=== PATIENT | female | born 1955 | race Caucasian/White ===

== ENCOUNTER 2016-05-21 09:41 | Day surgery (SDC) | payer MEDICARE, OTHER ==
--- NOTE | ~2016-05-21 | EGD ---
EGD REPORT [facility] [address] [place]. [id number] NAME: FOUZIA ABDALLA : 55 STATUS : REG [facility]#: [id number] AGE: 60 ADM/REG DATE : 05/21/16 MR#: [id number] REPORT SERV DATE: 05/21/16 DICTATED BY: CARSON RODGERS DATE: 05/21/16 REPORT STATUS : Draft [facility]ANS[facility]IBED BY: [facility] DATE: 05/21/16 Endoscopy Center Patient Name: Fouzia Abdalla Date of : 1955 Attending MD: CARSON RODGERS, Procedure Date No Time: 05/21/2016 Procedure: Upper EUS Indications: Suspected solid pancreatic neoplasm Referring MD: PARAMJIT CASTILLO Medicines: Monitored Anesthesia Care, General Anesthesia (patient intubated after food noted in stomach) Complications: No immediate complications. Estimated blood loss: None. Procedure: Pre-Anesthesia Assessment: - ASA Grade Assessment: III - A patient with severe systemic disease. After obtaining informed consent, the endoscope was passed under direct vision. Throughout the procedure, the patient's blood pressure, pulse, and oxygen saturations were monitored continuously. The Endoscope was introduced through the mouth, and advanced to the second part of duodenum. The GIF [id number] was introduced through the mouth, and advanced to the second part of duodenum. Findings: Endoscopic Finding : The examined esophagus was endoscopically normal. A large amount of food (residue) was found in the gastric body and in the gastric antrum. The examined duodenum was endoscopically normal. Endosonographic Finding : An irregular mass was identified in the pancreatic tail. The mass was hypoechoic. The mass measured 31 mm by 28 mm in maximal cross-sectional diameter. The endosonographic borders were well-defined. An intact interface was seen between the mass and the portal vein, superior mesenteric vein, splenoportal confluence, celiac trunk and superior mesenteric artery suggesting a lack of invasion. Fine needle aspiration was performed. Color Doppler imaging was utilized prior to needle puncture to confirm a lack of significant vascular structures within the needle path. Six passes were made with the 22 gauge needle using a transgastric approach. No stylet was used. A round mass (mulitple mostly subcentimter mass throughout left lobe of liver) was identified endosonographically in the left lobe of the liver. The mass measured 12 by 10 mm in maximal cross-sectional diameter. The endosonographic borders were well-defined. Fine needle aspiration was EGD REPORT [address] [place]. [address] NAME: FOUZIA ABDALLA : 55 STATUS : REG [facility] [place] PAT#: [id number] AGE: 60 ADM/REG DATE : 05/21/16 MR#: [id number] REPORT SERV DATE: 05/21/16 DICTATED BY: CARSON RODGERS DATE: 05/21/16 REPORT STATUS : Draft TRANSCRIBED BY: [employer] DATE: 05/21/16 performed. Color Doppler imaging was utilized prior to needle puncture to confirm a lack of significant vascular structures within the needle path. Four passes were made with the 25 gauge needle using a transgastric approach. There was no sign of significant endosonographic abnormality in the examined duodenum. Endosonographic images of the stomach were unremarkable. There was no sign of significant endosonographic abnormality in the esophagus. No lymphadenopathy seen. Impression: - Normal esophagus. - A large amount of food (residue) in the stomach. - Normal examined duodenum. - A mass was identified in the pancreatic tail. - A mass was found in the left lobe of the liver (multilple metastasis noted. See above). - There was no sign of significant pathology in the examined duodenum. - Endosonographic images of the stomach were unremarkable. - There was no sign of significant pathology in the esophagus. Recommendation: - Return to previous diet. - Continue present medications. - Await path results. - Return to referring physician. Procedure Code(s): --- Professional --- 80614, Esophagogastroduodenoscopy, flexible, transoral; with transendoscopic ultrasound-guided intramural or transmural fine needle aspiration/biopsy(s) (includes endoscopic ultrasound examination of the esophagus, stomach, and either the duodenum or a surgically altered stomach where the jejunum is examined distal to the anastomosis) Diagnosis Code(s): --- Professional --- K86.8, Other specified diseases of pancreas R16.0, Hepatomegaly, not elsewhere classified CPT copyright 2013 [employer]. All rights reserved. The codes documented in this report are preliminary and upon vocational auto body instructor review may be revised to meet current compliance requirements. EGD REPORT [facility] [address] [id number] NAME: FOUZIA ABDALLA [place] : 55 STATUS : REG [facility]#: [id number] AGE: 60 ADM/REG DATE : 05/21/16 MR#: [id number] REPORT SERV DATE: 05/21/16 DICTATED BY: CARSON RODGERS DATE: 05/21/16 REPORT STATUS : Draft TRANSCRIBED BY: [employer] DATE: 05/21/16 CARSON RODGERS 05/21/2016 11:56 AM Number of Addenda: 0 Note Initiated On: 05/21/2016 10:34 AM Scope Withdrawal Time 0 hours 0 minutes 0 seconds [id number] [address] [id number]
[~2016-05-21 09:41] MED LIST: ADVIL PO; ASA5GR PO; ATV1 PO; CLARIT10 PO; CO Q-10100 MG PO; COMP10B PO; CONSTULOSE PO; COREG3 PO; DEX4 PO; DSS PO; EFFEXXR75 PO; FLUCON1 PO; FOLIC PO; KLOR-CON M2020 MEQ PO; L40 PO; LACT30UDL PO; MAGIC MOUTHWASH PO; MAGOX4 PO; MSCONT60 PO; MSCONTIN PO; MULTIPLE VIT PO; NEUR600 PO; NUCYNTA50 MG PO; OXYCOD PO; PRIN5 PO; PROTONIX PO; ROXICODONE15 MG PO; SPIRO50 PO; STERIOD; VITD PO; VITE PO; ZANAFLEX 4 MG TA4 MG PO; ZOFRAN4 PO; ZOFRAN8 PO; [UNRECOGNIZED DRUG - OTHER]
[2016-05-21 10:35] LABS: ALBUMIN 3.4 G/DL (3.5-5.0); ALKALINE PHOSPHATASE 67 U/L (45-117); BUN (BLOOD UREA NITROGEN) 15 MG/DL (6-23); CALCIUM, SERUM 8.3 MG/DL (8.5-10.4); CHLORIDE, SERUM 108 MMOL/L (96-112); CO2 (CARBON DIOXIDE) 27 MMOL/L (24-34); DIRECT BILIRUBIN 0.2 MG/DL (0.0-0.4); GFR AFRICAN AMERICAN 71 ML/MIN (>=60); GFR NON AFRICAN AMERICAN 61 ML/MIN (>=60); GLUCOSE, SERUM 109 MG/DL (60-99); INDIRECT BILIRUBIN(NOT ORDER) 0.5 MG/DL (0.1-0.9); POTASSIUM, SERUM 4.3 MMOL/L (3.5-5.3); SGOT(AST) 12 U/L (5-40); SGPT(ALT) 23 U/L (5-65); SODIUM, SERUM 144 MMOL/L (135-148); TOTAL BILIRUBIN 0.7 MG/DL (0-1.2); TOTAL PROTEIN 6.5 G/DL (6.0-8.5)
== END 2016-05-21 14:12 | disposition home or self-care (01) ==
LOC: DMU 09:41
PROVIDERS: Anesthesiology; Internal Medicine Gastroenterology
PROC: 0F923ZX Drainage of Left Lobe Liver, Percutaneous Approach, Diagnostic (ICD-10-PCS; 2016-05-21)
PROC: 0F9G3ZX Drainage of Pancreas, Percutaneous Approach, Diagnostic (ICD-10-PCS; 2016-05-21)
PROC: BD47ZZZ Ultrasonography of Gastrointestinal Tract (ICD-10-PCS; principal; 2016-05-21 11:04)
DX: C25.2 Malignant neoplasm of tail of pancreas (principal); C22.7 Other specified carcinomas of liver; J44.9 Chronic obstructive pulmonary disease, unspecified; F17.200 Nicotine dependence, unspecified, uncomplicated; Z79.891 Long term (current) use of opiate analgesic; Z79.899 Other long term (current) drug therapy
CPT/HCPCS: 80048; 80076; 88172; 88173; 88305; A9270-GY; C1725; J0330

== ENCOUNTER 2016-06-01 06:48 | Day surgery (SDC) | payer MEDICARE, OTHER ==
--- NOTE | ~2016-06-01 | EGD ---
EGD REPORT [facility] [address] [place]. [address] NAME: FOUZIA ABDALLA : 55 STATUS : REG [facility]#: [id number] AGE: 60 ADM/REG DATE : 06/01/16 MR#: [id number] REPORT SERV DATE: 06/01/16 DICTATED BY: CARSON RODGERS DATE: 06/01/16 REPORT STATUS : Draft [facility]ANSCRIBED BY: [facility] DATE: 06/01/16 Endoscopy Center Patient Name: Fouzia Abdalla Date of : 1955 Attending MD: CARSON RODGERS, Procedure Date No Time: 06/01/2016 Procedure: Upper EUS Indications: Esophageal adenocarcinoma, For celiac plexus neurolysis Referring MD: ZEE WALDEN, Maksim Cuevas Complications: No immediate complications. Estimated blood loss: None. Procedure: Pre-Anesthesia Assessment: - ASA Grade Assessment: III - A patient with severe systemic disease. After obtaining informed consent, the endoscope was passed under direct vision. Throughout the procedure, the patient's blood pressure, pulse, and oxygen saturations were monitored continuously. The Endoscope was introduced through the mouth, and advanced to the duodenal bulb. The upper EUS was accomplished without difficulty. The patient tolerated the procedure well. Findings: Endosonographic Finding : The region of the celiac plexus and celiac ganglia was visualized and showed no sign of significant endosonographic abnormality. The vascular anatomy of the region was normal. Celiac plexus neurolysis was performed. The region of the celiac plexus and celiac ganglia was identified endosonographically with Color Doppler imaging, using the take-off of the celiac trunk from the anterior aspect of the aorta as the main anatomical landmark. Color Doppler guidance was also used to confirm a lack of significant vascular structures within the injection needle path. Using a transgastric approach, a 22 gauge needle was advanced to the area of the celiac plexus. Needle aspiration was performed prior to injection to exclude entry into a blood vessel. A total of 10 mL of 0.75% bupivacaine and 20 (twenty) mL of absolute alcohol were injected for the celiac plexus neurolysis. The needle was then withdrawn. Impression: - Celiac plexus neurolysis performed. Recommendation: - Return to previous diet. - Continue present medications. - Return to referring physician. Procedure Code(s): --- Professional --- EGD REPORT [place] [id number] [place]. [address] NAME: FOUZIA ABDALLA : 55 [place]US : [place] [facility] [place] [id number] AGE: 60 ADM/REG DATE : 06/01/16 MR#: [id number] REPORT SERV DATE: 06/01/16 DICTATED BY: CARSON RODGERS DATE: 06/01/16 REPORT STATUS : Draft TRANSCRIBED BY: [employer] DATE: 06/01/16 [id number], Esophagogastroduodenoscopy, flexible, transoral; with transendoscopic ultrasound-guided transmural injection of diagnostic or therapeutic substance(s) (eg, anesthetic, neurolytic agent) or fiducial marker(s) (includes endoscopic ultrasound examination of the esophagus, stomach, and either the duodenum or a surgically altered stomach where the jejunum is examined distal to the anastomosis) Diagnosis Code(s): --- Professional --- C15.9, Malignant neoplasm of esophagus, unspecified CPT copyright 2013 [employer]. All rights reserved. The codes documented in this report are preliminary and upon air pollution control engineer review may be revised to meet current compliance requirements. Attending Participation: I personally performed the entire procedure. CARSON RODGERS, 06/01/2016 8:22 AM Number of Addenda: 0 Note Initiated On: 06/01/2016 7:36 AM Scope Withdrawal Time 0 hours 0 minutes 0 seconds [id number] [id number]
[2016-06-01 07:09] LABS: BASOPHILS 0.5 %; BASOPHILS ABSOLUTE 0.04 10/3/uL (0.0-0.16); EOSINOPHILS 3.4 %; EOSINOPHILS ABSOLUTE 0.25 10/3/uL (0.0-0.53); IMMATURE GRANULOCYTES 0.3 %; IMMATURE GRANULOCYTES ABSOLUTE 0.02 10/3/uL (0.0-0.11); LYMPHOCYTES 14.9 %; LYMPHOCYTES ABSOLUTE 1.11 10/3/uL (0.67-4.30); MEAN CORPUS HGB CONC 32.9 g/dL (32.0-36.0); MEAN CORPUSCULAR HEMOGLOB 32.1 pg (26.0-34.0); MEAN CORPUSCULAR VOLUME 97.7 fL (80-100); MEAN PLATELET VOLUME 9.6 fL (9.2-13.0); MONOCYTES 10.2 %; MONOCYTES ABSOLUTE 0.76 10/3/uL (0.21-1.20); NEUTROPHILS 70.7 %; NEUTROPHILS ABSOLUTE 5.26 10/3/uL (2.02-8.40); RBC DISTRIBUTION WIDTH 13.4 % (12.0-16.0)
[2016-06-01 07:14] LABS: HEMATOCRIT 34.7 % (36.0-48.0); HEMOGLOBIN 11.4 g/dL (12.0-16.0); MANUAL DIFF NO %; PLATELET COUNT 181 10/3/uL (150-400); RED CELL COUNT 3.55 10/6/uL (4.0-5.6); WHITE BLOOD CELLS 7.4 10/3/uL (4.5-10.5)
[2016-06-01 07:24] LABS: BUN (BLOOD UREA NITROGEN) 7 MG/DL (6-23); CALCIUM, SERUM 8.5 MG/DL (8.5-10.4); CHLORIDE, SERUM 103 MMOL/L (96-112); CO2 (CARBON DIOXIDE) 31 MMOL/L (24-34); CREATININE 0.57 MG/DL (0.55-1.02); GFR AFRICAN AMERICAN 117 ML/MIN (>=60); GFR NON AFRICAN AMERICAN 101 ML/MIN (>=60); GLUCOSE, SERUM 140 MG/DL (60-99); POTASSIUM, SERUM 3.7 MMOL/L (3.5-5.3); SODIUM, SERUM 140 MMOL/L (135-148)
[2016-06-01 07:27] LABS: ALBUMIN 3.1 G/DL (3.5-5.0); DIRECT BILIRUBIN 0.1 MG/DL (0.0-0.4); INDIRECT BILIRUBIN(NOT ORDER) 0.6 MG/DL (0.1-0.9); TOTAL BILIRUBIN 0.7 MG/DL (0-1.2); TOTAL PROTEIN 6.7 G/DL (6.0-8.5)
== END 2016-06-01 23:59 | disposition home or self-care (01) ==
LOC: DMU 06:48
PROVIDERS: Anesthesiology; Internal Medicine Gastroenterology
PROC: 3E0G8GC Introduction of Other Therapeutic Substance into Upper GI, Via Natural or Artificial Opening Endoscopic (ICD-10-PCS; principal; 2016-06-01 08:00)
DX: C15.9 Malignant neoplasm of esophagus, unspecified (principal); I25.10 Atherosclerotic heart disease of native coronary artery without angina pectoris; J44.9 Chronic obstructive pulmonary disease, unspecified; C25.9 Malignant neoplasm of pancreas, unspecified; C22.9 Malignant neoplasm of liver, not specified as primary or secondary; M40.209 Unspecified kyphosis, site unspecified; C50.919 Malignant neoplasm of unspecified site of unspecified female breast; Z79.891 Long term (current) use of opiate analgesic; Z79.899 Other long term (current) drug therapy
CPT/HCPCS: 80048; 80076; 85025; C1725; J1956